=== PATIENT | female | born 2000 | race Native Hawaiian/Other Pacific Islander ===

== ENCOUNTER 2021-09-15 09:57 | Outpatient (CLI) | payer BC | END 2021-09-15 19:51 | disposition home or self-care (01) | LOC: CT 09:57 → US 11:30 → CT 19:51 | PROVIDERS: ATTEND Nurse Practitioner Primary Care | DX: N93.9 Abnormal uterine and vaginal bleeding, unspecified (principal); G43.109 Migraine with aura, not intractable, without status migrainosus ==